=== PATIENT | male | born 1955 | race Caucasian/White ===

== ENCOUNTER 2024-05-16 13:06 | Day surgery (SDC) | payer BC ==
[~2024-05-16] VITALS: Ht 175.3 cm; Wt 75.5 kg
[~2024-05-16 13:06] MED LIST: IBLOOD GLUCOSE TEST STRIP 1 EA TEST VI PRN; LACTATED RINGER'S 1,000 ML IV SCH; LEXAPRO10 MG PO; LIDOCAINE HCL 1% 5 ML SDV INJ ONE; MIDAZOLAM HCL 5 MG/5 ML VIAL IV PRN; NP THYROID60 MG PO; fentaNYL citrate 100 MCG/2 ML VIAL IV PRN
[2024-05-16 13:27] VITALS: BP 104/79
[2024-05-16] MEDS ORDERED: MIDAZOLAM HCL 5 MG/5 ML VIAL ONE (13:38)
[2024-05-16] MEDS ORDERED: fentaNYL citrate 100 MCG/2 ML VIAL ONE (13:39)
--- NOTE | 2024-05-16 14:54 | NUR ---
05/16/24 1454 Rama Garcia 1446-PT ARRIVES TO PACU RESTING ON HIS LT SIDE, PT A+O X4, DENIES PAIN OR NAUSEA, PT ENCOURAGED TO PASS GAS. VSS ON RA, RR EVEN AND UNLABORED.
[2024-05-16 15:39] VITALS: BP 108/70
--- NOTE | 2024-05-17 00:25 | OR ---
[facility] [address], [place] [address] Signed DATE OF OPERATION: 05/16/2024 SURGEON: Angelika Curran MD PREOPERATIVE DIAGNOSIS: Positive Cologuard test in September 2023. POSTOPERATIVE DIAGNOSIS: Possible adenomatous polyp of the cecum versus hyperplasia. PROCEDURE: Total colonoscopy to cecum with cold morcellation polypectomy x1. ANESTHESIA: Intravenous sedation; fentanyl 150 mcg, Versed 8 mg. INDICATION: This 68-year-old white man is a patient of Dr. Blanco, underwent colonoscopy greater than 10 years ago which was said to be negative. He has no current symptoms of bleeding, diarrhea or continuous constipation and no family history of colon cancer. He did undergo Cologuard testing in September 2023, which was positive. He is admitted at this time to undergo colonoscopy on the basis of a positive Cologuard test. He understands the risk of bleeding, infection, and perforation. FINDINGS: The prep was good. Complete colonoscopy was undertaken of the cecum. There was redundancy of the transverse and right colon, but complete and full intubation of cecum was accomplished. Irrigation was undertaken and good visualization the appendiceal orifice and the ileocecal valve was noted. There was an area of linear possible adenomatous change versus hyperplasia of the cecum which was excised fully with cold morcellation technique. Narrow-band imaging confirmed the probability that this was an adenoma, though it is not certain by any means. The remaining colon was examined quite thoroughly and there was no evidence of polyp or other abnormality throughout the remaining colon and rectum. DESCRIPTION OF PROCEDURE: The patient was brought to the endoscopy suite and placed in lateral decubitus position and given intravenous sedation to the point of slurred speech and nystagmus. Digital rectal examination was normal. Electronically Signed By: ANGELIKA CURRAN MD 05/17/24 0025 PATIENT NAME: LENA HURTADO OPERATIVE REPORT DATE OF : 55 REPORT #: [id number] PHYSICIAN: ANGELIKA CURRAN MD PCP: CHEMO BLANCO MD REPORT IS CONFIDENTIAL AND NOT TO BE RELEASED WITHOUT AUTHORIZATION [facility] [address], [place] [address] Signed An Olympus video colonoscope was passed in the rectum and manipulated throughout the colon ultimately intubating the right transverse colon. Abdominal wall stabilization was required to advance the scope more fully as well as additional sedation. Ultimately, the scope was passed to the right colon and with irrigation and other maneuvers full intubation of the cecum was accomplished. Irrigation was undertaken more fully confirming the ileocecal valve and appendiceal orifice in the junction between the cecum and the right colon was an area of linear hyperplasia or adenomatous change. Narrow-band imaging confirmed this to be probable though not certain. On the basis of these findings, multiple bites were taken with morcellation device extubating the abnormal mucosa completely. The scope was then withdrawn and careful examination throughout the remaining colon showed no sign of polyps, diverticular formation, colitis, or cancer. Retroflexed view of the rectum was normal. The scope was removed. The patient was taken to recovery room in good condition. CONCLUDING DIAGNOSIS: Possible polyp of cecal area fully excised. PLAN: If this proves to be an adenomatous polyp, repeat colonoscopy in 5 years would be appropriate given the technique of excision. If not adenomatous, repeat colonoscopy in 7 to 10 years or sooner if symptoms should develop would be recommended. He will return to the ongoing care of Dr. Blanco. MD SITA Moreira/JEFFREY /[id number] cc: Dr. Blanco Copies: ~ Electronically Signed By: ANGELIKA CURRAN MD 05/17/24 0025 PATIENT NAME: LENA HURTADO OPERATIVE REPORT DATE OF : 55 REPORT #: [id number] PHYSICIAN: ANGELIKA CURRAN MD PCP: CHEMO BLANCO MD REPORT IS CONFIDENTIAL AND NOT TO BE RELEASED WITHOUT AUTHORIZATION
== END 2024-05-16 15:30 | disposition home or self-care (01) ==
LOC: DS 13:06
PROVIDERS: ATTEND Surgery
PROC: 0DBH8ZZ Excision of Cecum, Via Natural or Artificial Opening Endoscopic (ICD-10-PCS; principal; 2024-05-16 14:00)
DX: D12.0 Benign neoplasm of cecum (principal); K63.89 Other specified diseases of intestine; E03.9 Hypothyroidism, unspecified; Z90.09 Acquired absence of other part of head and neck; Z98.890 Other specified postprocedural states
CPT/HCPCS: 99153; G0500; J2250; J3010; J7121